=== PATIENT | female | born 2005 | race Hispanic/Latino ===

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

== ENCOUNTER 2023-03-27 10:29 | Emergency (ER) | payer OTHER ==
[2023-03-27 11:06] LABS: #Monocytes 0.4 thou/uL (0.11-0.59); #Neutrophils 7.2 thou/uL (1.40-6.50); %Basophils 0.2 % (0.0-1.0); %Lymphocytes 21.6 % (28.0-48.0); %Monocytes 4.1 % (0.0-4.0); %Neutrophils 73.9 % (31.0-61.0); Hemoglobin 13.1 g/dL (12.0-16.0); Mean Corpuscular Hemoglobin 29.4 pg (25.0-35.0); Mean Corpuscular Volume 91.9 fl (78.0-98.0); Mean Platelet Volume 10.2 fL (7.4-10.4); Platelet Count 361 10x3/uL (130-400); RBC Distribution Width 13.1 % (11.5-14.5); Red Blood Cell (RBC) Count 4.45 mill/uL (4.00-5.20); White Blood Cell (WBC) Count 9.7 10x3/uL (4.8-10.8)
[2023-03-27 11:38] LABS: ALT (SGPT) 15 U/L (8-55); AST (SGOT) 18 U/L (5-30); Albumin 4.6 g/dL (3.5-5.0); Alkaline Phosphatase 65 U/L (40-100); Anion Gap 17 mmol/L (10-20); BUN (Urea Nitrogen) 8 mg/dL (8.4-21.0); Bilirubin, Total 0.6 mg/dL (0.2-1.2); Calc. Creatinine Clearance 0 mL/min (70-130); Calcium 9.9 mg/dL (7.8-10.44); Carbon Dioxide 19 mmol/L (22-29); Chloride 105 mmol/L (98-107); Estimated GFR 128; Globulin 3.4 g/dL (2.4-3.5); Glucose 92 mg/dL (70-105); Lipase 9 U/L (8-78); Potassium 3.6 mmol/L (3.5-5.1); Sodium 137 mmol/L (136-145)
[2023-03-27 12:12] LABS: Bacteria/HPF None Seen HPF (None Seen); Bilirubin Negative (Negative); Blood, Urine Negative (Negative); CAUTI Indications for Culture Pelvic or flank pain; Clarity Clear (Clear); Glucose, Urine (Dipstick) Normal (Negative); Ketone, Urine 60 mg/dL (Negative); Leukocyte Negative Leu/uL (Negative); Nitrite Negative (Negative); Protein, Urine (Dipstick) 20 mg/dL (Neg-Trace); RBC/HPF 0-3 HPF (0-3); Specific Gravity, Urine 1.024 (1.002-1.036); Urobilinogen Normal mg/dL (Less than 2); WBC/HPF 0-3 HPF (0-3); pH, Urine 5.5 (5.0-9.0)
[2023-03-27 12:14] LABS: Urine Culture Reflex No No
[2023-03-27 12:35] LABS: Pregnancy Test - Urine (BHCG) Negative (Negative); Pregu Control Background? CLEAR/WHITE (CLR/WHITE); Pregu Control Bar Appear? YES (CONTROL BAR); Specific Gravity 1.024 (1.002-1.036)
== END 2023-03-27 12:22 | disposition home or self-care (01) ==
LOC: ERS 10:29
DX: R10.9 Unspecified abdominal pain (principal)
CPT/HCPCS: 36415; 80053; 81001; 81025; 83690; 85025; 99284

== ENCOUNTER 2023-08-13 21:19 | Inpatient (IN) | payer OTHER, SELFPAY ==
[2023-08-13] MEDS ORDERED: diphenhydrAMINE 25 MG CAP ONE ×2 (22:25→22:27)
[2023-08-13] MEDS ORDERED: Ibuprofen 200 MG TAB ONE ×2 (22:25→22:26)
[2023-08-13 23:52] LABS: Hemoglobin 14.1 g/dL (12.0-16.0); Mean Corpuscular Hemoglobin 29.1 pg (25.0-35.0); Mean Corpuscular Volume 90.9 fl (78.0-98.0); Mean Platelet Volume 10.6 fL (7.4-10.4); Platelet Count 211 10x3/uL (130-400); RBC Distribution Width 13.2 % (11.5-14.5); Red Blood Cell (RBC) Count 4.84 mill/uL (4.00-5.20); White Blood Cell (WBC) Count 4.9 10x3/uL (4.8-10.8)
[2023-08-14] LABS: Delete Auto Diff?? YES; Manual Diff?? YES
[2023-08-14 00:14] LABS: ALT (SGPT) 33 U/L (8-55); AST (SGOT) 37 U/L (5-30); Albumin 4.8 g/dL (3.5-5.0); Alkaline Phosphatase 70 U/L (40-100); Anion Gap 17 mmol/L (10-20); BUN (Urea Nitrogen) 8 mg/dL (8.4-21.0); Bilirubin, Total 0.5 mg/dL (0.2-1.2); Calc. Creatinine Clearance 0 mL/min (70-130); Calcium 9.8 mg/dL (7.8-10.44); Carbon Dioxide 22 mmol/L (22-29); Chloride 103 mmol/L (98-107); Estimated GFR 106; Globulin 3.7 g/dL (2.4-3.5); Glucose 97 mg/dL (70-105); Potassium 3.6 mmol/L (3.5-5.1); Protein, Total 8.5 g/dL (6.0-8.3); Sodium 138 mmol/L (136-145)
[2023-08-14 00:29] LABS: Band 21 % (5-11); CellaVision Operator ID LAB.CLH1; Large Platelets 4.9 % (0-5); Lymphocytes 21 % (28-48); Monocytes 5 % (0-4); Neutrophil 46 % (31-61); Platelet Adequacy Comment Platelets Normal; Reactive Lymphocytes 8 % (0-10); Total Cell Count 102
[2023-08-14 01:20] LABS: Bacteria/HPF None Seen HPF (None Seen); Bilirubin Negative (Negative); Blood, Urine Negative (Negative); CAUTI Indications for Culture Dysuria,urgency,freq; Clarity Clear (Clear); Glucose, Urine (Dipstick) Normal (Negative); Ketone, Urine 20 mg/dL (Negative); Leukocyte Negative Leu/uL (Negative); Nitrite Negative (Negative); Protein, Urine (Dipstick) Negative (Neg-Trace); RBC/HPF None Seen HPF (0-3); Specific Gravity, Urine 1.004 (1.002-1.036); Squamous Epithelial None Seen HPF (0-3); Urobilinogen Normal mg/dL (Less than 2); WBC/HPF None Seen HPF (0-3); pH, Urine 6.5 (5.0-9.0)
[2023-08-14 01:23] LABS: Pregnancy Test - Urine (BHCG) Negative (Negative); Pregu Control Background? CLEAR/WHITE (CLR/WHITE); Pregu Control Bar Appear? YES (CONTROL BAR); Specific Gravity 1.004 (1.002-1.036)
[2023-08-14 01:24] LABS: Urine Culture Reflex No No
[2023-08-14] MEDS ORDERED: SODIUM CHLORIDE 0.9% IVPB SCH (02:00)
[2023-08-14] MEDS ORDERED: ACYCLOVIR SODIUM IVPB SCH (02:00)
[2023-08-14] MEDS ORDERED: Ondansetron PF 4 MG/2 ML Vial IVP PRN ×2 (06:25→11:14)
[2023-08-14] MEDS ORDERED: Ondansetron ODT 4 MG TAB PO PRN ×2 (06:25→11:14)
[2023-08-14] MEDS ORDERED: Acetaminophen 650 MG Suppository PR PRN (06:25)
[2023-08-14] MEDS ORDERED: Acetaminophen 325 MG TAB PO PRN (06:25)
[2023-08-14] MEDS ORDERED: Ondansetron PF 4 MG/2 ML Vial ONE (06:28)
[2023-08-14] MEDS ORDERED: Acetaminophen 325 MG TAB ONE (06:28)
[2023-08-14] MEDS ORDERED: diphenhydrAMINE 25 MG CAP PO PRN (11:17)
[2023-08-14] MEDS: Sodium Chloride 0.9% 1,000 ML IV SCH (12:13)
[2023-08-14] MEDS: SODIUM CHLORIDE 0.9% IVPB SCH ×2 (14:15→21:04)
[2023-08-14] MEDS: ACYCLOVIR SODIUM IVPB SCH ×2 (14:15→21:04)
[2023-08-14 15:17] VITALS: BMI 22.1
[2023-08-14] MEDS: Ibuprofen 800 MG TAB PO PRN (16:12)
[2023-08-14] MEDS ORDERED: Acetaminophen 325 MG TAB PO SCH (17:45)
[2023-08-14] MEDS: diphenhydrAMINE 50 MG CAP PO PRN (18:31)
[2023-08-14] MEDS ORDERED: Tacrolimus 0.5 MG CAP PO SCH (21:00)
[2023-08-14] MEDS: Tacrolimus 0.5 MG CAP PO SCH (21:03)
[2023-08-14] MEDS: Famotidine/PF 20 mg/2ml Vial SLOW IVP SCH (21:04)
[2023-08-15] MEDS: valACYclovir 500 MG TAB PO SCH ×3 (05:11→22:17)
[2023-08-15] MEDS: Sodium Chloride 0.9% 1,000 ML IV SCH ×2 (05:12→13:03)
[2023-08-15 06:53] LABS: Hematocrit 38.3 % (36.0-47.0); Hemoglobin 12.1 g/dL (12.0-16.0); Mean Corpuscular HGB CONC 31.6 g/dL (32.0-36.0); Mean Corpuscular Volume 91.8 fl (78.0-98.0); Mean Platelet Volume 10.9 fL (7.4-10.4); Platelet Count 175 10x3/uL (130-400); RBC Distribution Width 13.7 % (11.5-14.5); Red Blood Cell (RBC) Count 4.17 mill/uL (4.00-5.20); White Blood Cell (WBC) Count 5.1 10x3/uL (4.8-10.8)
[2023-08-15 07:09] LABS: Delete Auto Diff?? YES; Manual Diff?? YES
[2023-08-15 07:19] LABS: ALT (SGPT) 27 U/L (8-55); AST (SGOT) 28 U/L (5-30); Albumin 3.5 g/dL (3.5-5.0); Alkaline Phosphatase 54 U/L (40-100); Anion Gap 11 mmol/L (10-20); BUN (Urea Nitrogen) 5 mg/dL (8.4-21.0); Bilirubin, Total 0.3 mg/dL (0.2-1.2); Calc. Creatinine Clearance 85 mL/min (70-130); Calcium 8.4 mg/dL (7.8-10.44); Carbon Dioxide 24 mmol/L (22-29); Chloride 109 mmol/L (98-107); Estimated GFR 112; Globulin 3.1 g/dL (2.4-3.5); Glucose 79 mg/dL (70-105); Potassium 3.8 mmol/L (3.5-5.1); Protein, Total 6.6 g/dL (6.0-8.3); Sodium 140 mmol/L (136-145)
[2023-08-15 08:06] LABS: Band 28 % (5-11); CellaVision Operator ID LAB.GE; Large Platelets 3.9 % (0-5); Lymphocytes 34 % (28-48); Metamyelocyte 1 % (0-0); Monocytes 8 % (0-4); Neutrophil 18 % (31-61); Platelet Adequacy Comment Platelets Normal; Polychromasia SLIGHT = 2-3 cells HPF (0-2); Reactive Lymphocytes 10 % (0-10); Total Cell Count 103
[2023-08-15] MEDS: Famotidine/PF 20 mg/2ml Vial SLOW IVP SCH ×2 (09:11→22:16)
[2023-08-15] MEDS: Ibuprofen 800 MG TAB PO PRN ×2 (09:11→18:12)
[2023-08-15] MEDS: Tacrolimus 0.5 MG CAP PO SCH ×2 (09:12→22:17)
[2023-08-15] MEDS: diphenhydrAMINE 50 MG CAP PO PRN (10:09)
[2023-08-15] MEDS ORDERED: Benzocaine/Menthol 1 LOZ LOZ PO PRN (17:32)
[2023-08-15] MEDS ORDERED: diphenhydrAMINE 25 MG CAP PO PRN (18:05)
[2023-08-16] MEDS: Sodium Chloride 0.9% 1,000 ML IV SCH (05:20)
[2023-08-16] MEDS: valACYclovir 500 MG TAB PO SCH ×2 (05:20→13:56)
[2023-08-16] MEDS: Ibuprofen 800 MG TAB PO PRN (07:16)
[2023-08-16 07:44] VITALS: BP 121/79; TEMP 98.3
[2023-08-16] MEDS: Tacrolimus 0.5 MG CAP PO SCH (08:25)
[2023-08-16] MEDS: Famotidine/PF 20 mg/2ml Vial SLOW IVP SCH (08:27)
== END 2023-08-16 15:25 | disposition home or self-care (01) | DRG 75 ==
LOC: ERS 21:19 → ERHOLD 08-14 03:30 → T4-A 08-14 12:01 → OBSVTOIN 08-15 10:11
PROVIDERS: ADMIT Student in an Organized Health Care Education/Training Program; ATTEND Internal Medicine
DX: B02.1 Zoster meningitis (principal); B01.9 Varicella without complication; Z94.4 Liver transplant status; D84.9 Immunodeficiency, unspecified; Z79.899 Other long term (current) drug therapy
CPT/HCPCS: 36415; 80053; 81001; 81025; 84702; 85025; 86787; 87081; 87430; 87804; 96365; 96375; 96376; G0378; J0133; J2405; J3490; J7050; J7507; Q0162; S0028